=== PATIENT | male | born 1995 | race Caucasian/White ===

== ENCOUNTER 2017-05-12 13:22 | Emergency (ER) | payer OTHER ==
[~2017-05-12 13:22] MED LIST: BENTYL10 MG PO; CLARITIN10 MG PO; MEDROL DOSEPAK4 MG PO; MOTRIN600 MG PO; MOTRIN800 MG PO; NKHM; Zofran4 MG PO
[2017-05-12] MEDS ORDERED: PROAIR HFA8.5 GM INH ×2 (14:45→14:46)
[2017-05-12] MEDS ORDERED: PREDNISONE10 MG PO ×2 (14:45→14:46)
== END 2017-05-12 14:53 | disposition home or self-care (01) ==
LOC: ED 13:22
DX: J40 Bronchitis, not specified as acute or chronic (principal); F17.200 Nicotine dependence, unspecified, uncomplicated; H92.03 Otalgia, bilateral

== ENCOUNTER 2019-06-07 14:20 | Emergency (ER) | payer SELFPAY ==
[~2019-06-07] VITALS: Ht 180.3 cm; Wt 63.5 kg
[~2019-06-07 14:20] MED LIST changes: +Motrin,Rufen800 MG PO; +PREDNISONE10 MG PO; +PROAIR HFA8.5 GM INH
[2019-06-07] MEDS ORDERED: AUGMENTIN 875875 MG PO (15:43)
== END 2019-06-07 15:49 | disposition home or self-care (01) ==
LOC: ED 14:20
DX: S02.2XXA Fracture of nasal bones, initial encounter for closed fracture (principal); W01.198A Fall on same level from slipping, tripping and stumbling with subsequent striking against other object, initial encounter; Y93.72 Activity, wrestling; Y92.89 Other specified places as the place of occurrence of the external cause; Y99.8 Other external cause status

== ENCOUNTER 2019-06-22 14:00 | Inpatient (IN) | payer BC ==
[~2019-06-22] VITALS: Ht 180.3 cm; Wt 62.7 kg
--- NOTE | ~2019-06-22 | EKG ---
[place], [place] ELECTROCARDIOGRAM REPORT NAME: CARLOS PATEL UNIT #: [id number] ROOM: 411 DOCTOR: TAMERA DRAFT REPORT BIRTHDATE: [birth year] [facility] Test Date: 2019-06-23 Test Time: 08:17:36 Pat Name: CARLOS PATEL Department: Room: 411 1 Gender: M Tattoo Designer: Tish Otero : 1995 Requested By: QUYEN LUTHER Order Number: [id number] Reading MD: Darshan Arzola Measurements Intervals [place] Rate: 48 P: 39 IN: 143 QRS: 85 QRSD: 105 T: 72 QT: 448 QTc: 401 Interpretive Statements Sinus bradycardia RSR' in V1 or V2, right VCD or RVH No previous ECG available for comparison Electronically Signed On 06-25-2019 12:03:14 PDT by Darshan Arzola CM:EKGRPT:ELECTROCARDIOGRAM REPORT 1203 QUYEN PHILIP DRAFT REPORT QUYEN LUTHER
[~2019-06-22 14:00] MED LIST changes: +AUGMENTIN 875875 MG PO
[2019-06-22 15:05] VITALS: BP 133/90
--- NOTE | 2019-06-22 15:05 | NUR ---
A 23YR OLD MALE, admitted to , under the services of KERRI Carrion DO with a diagnosis of ALCOHOL WITHDRAWL. Chief complaint is HERE FOR [facility]. DRINKS EVERY DAY, UP TO 18 PACK OF BEER, UP TO 7 TWISTED TEAS/DAY. Patient arrived via ambulatory from [place]. Monitor applied. Initial assessment completed. Vital signs taken and recorded. See assessment for past medical history, medications and allergies. Patient and/or family oriented to unit. [facility] reviewed. Clothing/patient valuable form completed. ZOILA LEVINE L
--- NOTE | 2019-06-22 15:10 | NUR ---
PATIENT MEETS [facility]. CIWA=19. PATIENT WANTS RESIDENTIAL TREATMENT FOR HIS AFTERCARE PLAN. [place] STAFF PROVIDED PATIENT WITH REFERRAL OPTIONS. CESAR CHAPA B.A. SPINDLE CARVER
[2019-06-22 15:28] LABS: BASO # 0.1 10*3/uL (0.0-0.1); BASO % 1.1 % (0.0-1.0); EOS # 0.1 10*3/uL (0.0-0.4); EOS % 1.3 % (1.0-4.0); HEMATOCRIT 47.7 % (42.0-52.0); HEMOGLOBIN 16.5 g/dl (14.0-18.0); LYMPH # 1.8 10*3/uL (1.3-4.4); LYMPH % 20.6 % (27.0-41.0); MEAN CELL VOLUME 93.5 fl (80.0-94.0); MEAN CORPUSCULAR HGB 32.4 pg (27.0-31.0); MEAN CORPUSCULAR HGB CONC 34.6 g/dl (33.0-37.0); MONO # 0.7 10*3/uL (0.1-1.0); MONO % 8.1 % (3.0-9.0); NEUT # 5.8 10*3/uL (2.3-7.9); NEUT % 68.5 % (47.0-73.0); PLATELET COUNT AUTOMATED 259 10*3/uL (130-400); WHITE BLOOD COUNT 8.5 10*3/uL (4.8-10.8)
[2019-06-22 15:37] LABS: INTERNATIONAL NORM RATIO 0.9 (2.0-3.5)
[2019-06-22 15:47] LABS: ALBUMIN 4.3 gm/dl (3.1-4.5); ALKALINE PHOSPHATASE 119 U/L (45-117); BUN 14 mg/dl (7-24); CHLORIDE 101 mmol/L (98-107); CREATININE 1.26 mg/dL (0.70-1.30); POTASSIUM 4.2 mmol/L (3.5-5.1); SGOT/AST 22 IU/L (3-35); SGPT/ALT 26 U/L (12-78); SODIUM 136 mmol/L (136-145); TOTAL PROTEIN 7.6 gm/dL (6.4-8.2)
--- NOTE | 2019-06-22 15:50 | NUR ---
DR JESSICA HAS VISITED.
[2019-06-22 15:51] LABS: ETHYL ALCOHOL < 3.0 mg/dl (<3)
[2019-06-22 16:00] VITALS: BP 134/88
--- NOTE | 2019-06-22 17:24 | NUR ---
PT GAVE URINE SPECIMEN. FIRST DOSE LIBRIUM GIVEN. MVI BAG UP TO INFUSE
[2019-06-22 17:45] LABS: BILIRUBIN NEGATIVE (NEGATIVE); BLOOD NEGATIVE (NEGATIVE); CLARITY CLEAR (CLEAR); COLOR YELLOW (YELLOW); GLUCOSE NEGATIVE (NEGATIVE); KETONE NEGATIVE (NEGATIVE); LEUKO ESTERASE NEGATIVE (NEGATIVE); NITRITE NEGATIVE (NEGATIVE); UROBILINOGEN 0.2 E.U./dl (0.2-1.0)
[2019-06-22 17:47] LABS: URINE AMPHETAMINES < 1000 (1000ng/ml); URINE BARBITURATES < 200 (200ng/ml); URINE BENZODIAZEPINES < 200 (200ng/ml); URINE CANNABINOIDS (THC) > 50 (50ng/ml); URINE COCAINE > 300 (300ng/ml); URINE METHADONE < 300 (300ng/ml); URINE OPIATES < 300 (300ng/ml)
[2019-06-22 17:48] LABS: URINE PHENCYCLIDINE < 25 (25ng/ml)
[2019-06-22 18:12] LABS: EPITHELIAL CELLS 0-2
--- NOTE | 2019-06-22 19:11 | NUR ---
BEMTYL GIVEN PRN ORDERED FOR COMPLAINTS OF STOMACH CRAMPS. WILL CONTINUE TO MONITOR AND REASSESS.
[2019-06-22 20:00] VITALS: BP 138/79
[2019-06-23] VITALS: BP 106/61
--- NOTE | 2019-06-23 00:24 | NUR ---
PATIENT COMPLAINED OF A HEADACHE AT A 03/15. PATIENT REQUESTED IBUPROFEN. IBUPROFEN GIVEN. WILL ASSESS FOR EFFECTIVENESS.
--- NOTE | 2019-06-23 01:20 | NUR ---
PATIENT STATED IBUPROFEN WAS EFFECTIVE. RESTING IN BED. CALL LIGHT WITHIN REACH. BED LOCKED AND IN LOWEST POSITION. SIDE RAILS UP X2.
--- NOTE | 2019-06-23 01:43 | NUR ---
24 HR chart check completed.
--- NOTE | 2019-06-23 03:47 | NUR ---
PATIENT'S HR DROPPED TO 40 WHILE ASLEEP. WHEN AWAKENED HR WENT UP TO 77. PATIENT WAS ASYMPTOMATIC AND STATED THAT HE FELT FINE.
--- NOTE | 2019-06-23 07:30 | NUR ---
Patient resting quietly with no c/o discomfort. Respirations easy and regular. Vital signs stable. No overt distress. EZEQUIEL MAST
--- NOTE | 2019-06-23 07:59 | NUR ---
24 HR chart check completed.
[2019-06-23 08:00] VITALS: BP 110/50
[2019-06-23 12:00] VITALS: BP 119/59
--- NOTE | 2019-06-23 12:10 | NUR ---
[place] STAFF SENT PATIENT'S ASSESSMENT TO [facility]. THE FACILITY WILL CONTACT PATIENT FOR NEEDED PHONE ASSESSMENT. [place] STAFF WILL FOLLOW UP WITH PATIENT. CESAR CHAPA B.A. FLAT SCREEN WORKER
--- NOTE | 2019-06-23 13:09 | NUR ---
PATIENT WANTS [place] STAFF TO FOLLOW UP WITH [facility] INSTEAD OF [facility] [place] [facility] [place] [facility] BECAUSE OF THE DISTANCE. [place] STAFF WILL FOLLOW UP WITH [facility]. CESAR CHAPA B.A. INTERMISSION COORDINATOR
--- NOTE | 2019-06-23 14:48 | NUR ---
MEDICATED WITH PO TYLENOL, MOTRIN, ROBAXIN, BENTYL, VISTARIL AND IMODIUM ORDERED PER PT REQUEST FOR C/O BODY ACHES, CRAMPING, ANXIETY AND DIARRHEA.
[2019-06-23 16:00] VITALS: BP 126/71
--- NOTE | 2019-06-23 16:00 | NUR ---
Patient resting. Responding to scheduled medications with fewer complaints of pain and anxiety.
--- NOTE | 2019-06-23 16:33 | NUR ---
FAMILY IN ROOM UPDATED ON POC PER PT REQUEST.
--- NOTE | 2019-06-23 18:37 | NUR ---
MEDICATED WITH TOPICAL NICODERM PATCH ORDERED PER PT REQUEST FOR C/O NICOTINE CRAVINGS.
[2019-06-23 20:07] VITALS: BP 117/60
--- NOTE | 2019-06-23 22:37 | NUR ---
PATIENT REQUESTED VISTARIL FOR ANXIETY AND ROBAXIN FOR MUSCLE ACHES. WILL ASSESS FOR EFFECTIVENESS.
--- NOTE | 2019-06-23 23:38 | NUR ---
PATIENT RESTING IN BED WITH FEWER COMPLAINTS OF ANXIETY AND MUSCLE ACHES. WILL CONTINUE TO MONITOR.
[2019-06-24] VITALS: BP 119/60
--- NOTE | 2019-06-24 00:05 | NUR ---
24 HR chart check completed.
[2019-06-24 06:08] LABS: CREATININE 0.96 mg/dL (0.70-1.30)
--- NOTE | 2019-06-24 06:43 | NUR ---
PATIENT COMPLAINED OF FEELING NAUSEAUS, ANXIOUS, AND HAVING MUSCLE ACHES. ZOFRAN, VISTARIL, AND ROBAXIN GIVEN PER PATIENT REQUEST. WILL ASSESS FOR EFFECTIVENESS.
[2019-06-24 08:00] VITALS: BP 115/52
[2019-06-24 11:52] VITALS: BP 126/58
--- NOTE | 2019-06-24 12:35 | NUR ---
PATIENT IS GOING TO RESIDENTIAL TREATMENT WITH [facility]. PATIENT WILL GOING TO THEIR [place] LOCATION. PATIENT'S FLIGHT IS SCHEDULED FOR TOMORROW AFTERNOON. PATIENT AGREES AND UNDERSTANDS HIS AFTERCARE PLAN. CESAR CHAPA B.A. SMALL BUSINESS CONSULTANT
[2019-06-24 15:53] VITALS: BP 134/65
[2019-06-24 20:00] VITALS: BP 114/63
--- NOTE | 2019-06-24 21:09 | NUR ---
PATIENT COMPLAINED OF MUSCLE ACHES AND ANXIETY. ROBAXIN AND VISTARIL GIVEN PER PATIENT REQUEST. WILL ASSESS FOR EFFECTIVENESS.
--- NOTE | 2019-06-24 22:10 | NUR ---
PATIENT STATED VISTARIL AND ROBAXIN WERE EFFECTIVE. RESTING IN BED. CALL LIGHT WITHIN REACH. WILL CONTINUE TO MONITOR.
[2019-06-25] VITALS: BP 110/65
--- NOTE | 2019-06-25 00:17 | NUR ---
PATIENT COMPLAINED OF NOT BEING ABLE TO SLEEP. TRAZODONE GIVEN PER PATIENT REQUEST. WILL ASSESS FOR EFFECTIVENESS.
--- NOTE | 2019-06-25 01:15 | NUR ---
TRAZODONE EFFECTIVE. PATIENT ASLEEP. CALL LIGHT WITHIN REACH.
[2019-06-25 06:25] LABS: BASO # 0.1 10*3/uL (0.0-0.1); BASO % 1.2 % (0.0-1.0); EOS # 0.2 10*3/uL (0.0-0.4); HEMATOCRIT 44.9 % (42.0-52.0); LYMPH # 2.3 10*3/uL (1.3-4.4); LYMPH % 29.4 % (27.0-41.0); MEAN CELL VOLUME 94.5 fl (80.0-94.0); MEAN CORPUSCULAR HGB 31.6 pg (27.0-31.0); MEAN CORPUSCULAR HGB CONC 33.4 g/dl (33.0-37.0); MEAN PLATELET VOLUME 10.6 fl (9.6-12.3); MONO # 0.7 10*3/uL (0.1-1.0); MONO % 9.1 % (3.0-9.0); NEUT # 4.4 10*3/uL (2.3-7.9); PLATELET COUNT AUTOMATED 212 10*3/uL (130-400); RED BLOOD COUNT 4.75 10*6/uL (4.50-5.90); WHITE BLOOD COUNT 7.7 10*3/uL (4.8-10.8)
[2019-06-25 08:00] VITALS: BP 126/56
--- NOTE | 2019-06-25 12:21 | NUR ---
Per request of patient spoke with regarding prescription for Nictoderm patch. Prescription was called into patients home pharmacy.
--- NOTE | 2019-06-25 12:30 | NUR ---
Discharge instructions reviewed with patient/family. Patient receptive and verbalizes understanding. Follow-up care arranged. Written instructions given to patient/family. Patient ambulated from unit with girlfriend and with all personal belongings. MYLENE JOHNSON
== END 2019-06-25 12:30 | disposition home or self-care (01) | DRG 897 ==
LOC: 4E 14:00
PROVIDERS: Student in an Organized Health Care Education/Training Program; ADMIT Family Medicine
DX: F10.239 Alcohol dependence with withdrawal, unspecified (principal); F41.9 Anxiety disorder, unspecified; F17.210 Nicotine dependence, cigarettes, uncomplicated; Z71.6 Tobacco abuse counseling; Z81.1 Family history of alcohol abuse and dependence

== ENCOUNTER 2021-08-12 09:04 | Emergency (ER) | payer BC ==
[~2021-08-12] VITALS: Wt 70.8 kg
[2021-08-12] MEDS ORDERED: AVPAK AZITHROM250 MG PO (11:52)
== END 2021-08-12 10:32 | disposition home or self-care (01) ==
LOC: ED 09:04
DX: J18.1 Lobar pneumonia, unspecified organism (principal); Z20.822 Contact with and (suspected) exposure to COVID-19; J06.9 Acute upper respiratory infection, unspecified; J45.909 Unspecified asthma, uncomplicated

== ENCOUNTER 2023-07-27 20:29 | Emergency (ER) | payer SELFPAY ==
[~2023-07-27] VITALS: Ht 180.3 cm; Wt 82.6 kg
[~2023-07-27 20:29] MED LIST changes: +AVPAK AZITHROM250 MG PO; +ZITHROMAX250 MG PO
[2023-07-27 21:14] LABS: BASO # 0.2 10*3/uL (0.0-0.1); BASO % 1.6 % (0.0-1.0); EOS # 0.2 10*3/uL (0.0-0.4); EOS % 1.7 % (1.0-4.0); HEMATOCRIT 44.2 % (42.0-52.0); LYMPH # 2.8 10*3/uL (1.3-4.4); MEAN CELL VOLUME 91.1 fl (80.0-94.0); MEAN CORPUSCULAR HGB 31.1 pg (27.0-31.0); MEAN CORPUSCULAR HGB CONC 34.2 g/dl (33.0-37.0); MEAN PLATELET VOLUME 10.4 fl (9.6-12.3); MONO # 1.1 10*3/uL (0.1-1.0); NEUT # 5.7 10*3/uL (2.3-7.9); NEUT % 57.5 % (47.0-73.0); PLATELET COUNT AUTOMATED 320 10*3/uL (130-400); RED BLOOD COUNT 4.85 10*6/uL (4.50-5.90); RED CELL DISTRI WIDTH 12.8 % (0-14.5); WHITE BLOOD COUNT 9.9 10*3/uL (4.8-10.8)
[2023-07-27 21:41] LABS: ALKALINE PHOSPHATASE 79 U/L (46-116); BUN 7 mg/dl (9-23); CHLORIDE 105 mmol/L (98-107); ETHYL ALCOHOL 253.7 mg/dl (<3); POTASSIUM 4.3 mmol/L (3.4-5.1); SGPT/ALT 22 U/L (5-49); TOTAL PROTEIN 7.1 gm/dL (6.0-8.0)
== END 2023-07-27 23:23 | disposition home or self-care (01) ==
LOC: ED 20:29
PROVIDERS: Family Medicine
DX: S00.91XA Abrasion of unspecified part of head, initial encounter (principal); S06.9X1A Unspecified intracranial injury with loss of consciousness of 30 minutes or less, initial encounter; J45.909 Unspecified asthma, uncomplicated; F10.129 Alcohol abuse with intoxication, unspecified; R11.0 Nausea; Z90.89 Acquired absence of other organs; F17.200 Nicotine dependence, unspecified, uncomplicated; F10.10 Alcohol abuse, uncomplicated; Z79.899 Other long term (current) drug therapy; Y90.0 Blood alcohol level of less than 20 mg/100 ml; W20.8XXA Other cause of strike by thrown, projected or falling object, initial encounter; Y93.89 Activity, other specified; Y92.89 Other specified places as the place of occurrence of the external cause; Y99.8 Other external cause status

== ENCOUNTER 2023-09-21 03:13 | Emergency (ER) | payer BC ==
[~2023-09-21] VITALS: Ht 180.3 cm; Wt 83.9 kg
[2023-09-21] MEDS ORDERED: VENLAFAXINE HYD75 M3 PO (03:43)
[2023-09-21] MEDS ORDERED: LAMOTRIGINE25 M1 PO (03:43)
[2023-09-21] MEDS ORDERED: MELOXICAM15 MG PO (06:03)
== END 2023-09-21 07:00 | disposition home or self-care (01) ==
LOC: ED 03:13
DX: R07.81 Pleurodynia (principal); J45.909 Unspecified asthma, uncomplicated; Z90.89 Acquired absence of other organs; Z98.890 Other specified postprocedural states; F17.210 Nicotine dependence, cigarettes, uncomplicated; F10.10 Alcohol abuse, uncomplicated